=== PATIENT | female | born 1990 | race Caucasian/White ===

== ENCOUNTER 2017-02-03 00:32 | Emergency (ER) | payer MEDICAID ==
[~2017-02-03] VITALS: Ht 162.6 cm; Wt 105.0 kg
[2017-02-03 00:34] VITALS: Ht 162.6 cm; Wt 105.0 kg
[2017-02-03] MEDS ORDERED: [UNRECOGNIZED DRUG - REMARK] (01:40)
--- NOTE | 2017-02-03 01:40 | ERD ---
ER Documentation Chief Complaint Date/Time DATE: 02/03/17 TIME: 01:39 Chief Complaint 13 wks , vag spotting x 2 wks HPI 27-year-old female presents here in emergency department for complaints of vaginal spotting for 2 weeks. Patient is 2 para 0 1. Patient approximately 13 weeks , LMP 10/12/2016. Patient's complaining of vaginal spotting and cramping pain, 3/10 scale, accompanied with the bleeding. Patient denies hematuria or dysuria. Patient denies any flank pain. ROS All systems reviewed and are negative except as per history of present illness. Medications Home Meds Active Scripts Cephalexin* (Keflex*) 500 Mg Capsule, 500 MG PO QID for 10 Days, CAP Prov:SHANT ISRAEL STUDENT CAREER DEVELOPMENT SPECIALIST 02/03/17 Reported Medications [ pills] Unknown Strength No Conflict Check 02/03/17 Allergies Allergies: Coded Allergies: No Known Drug Allergies (Verified Allergy, Unknown, 11/19/15) PMhx/Soc Medical and Surgical Hx: pt denies Medical Hx, pt denies Surgical Hx Hx Alcohol Use: No Hx Substance Use: No Hx Tobacco Use: No Smoking Status: Never smoker FmHx Family History: No coronary disease, No diabetes, No other Physical Exam Vitals Vital Signs Date Time Temp Pulse Resp B/P Pulse Ox O2 Delivery O2 Flow Rate FiO2 02/03/17 03:32 100 98 Room Air 02/03/17 00:34 97.8 112 20 113/57 97 Physical Exam GENERAL: The patient is well developed and appropriate for usual state of health, in no apparent distress. CHEST: Clear to auscultation bilaterally. There are no rales, wheezes or rhonchi. HEART: Regular rate and rhythm. No murmurs, clicks, rubs or gallops. No S3 or S4. ABDOMEN: Soft, nontender and nondistended. Good bowel sounds. No rebound or guarding. No gross peritonitis. No gross organomegaly or masses. No Hart sign or McBurney point tenderness. BACK: No midline or flank tenderness. EXTREMITIES: Equal pulses bilaterally. There is no peripheral clubbing, cyanosis or edema. No focal swelling or erythema. Full range of motion. Grossly neurovascularly intact. NEURO: Alert and oriented. Cranial nerves 2-12 intact. Motor strength in all 4 extremities with 5/5 strength. Sensation grossly intact. Normal speech and gait. SKIN: There is no apparent rash or petechia. The skin is warm and dry. HEMATOLOGIC AND LYMPHATIC: There is no evidence of excessive bruising or lymphedema. No gross cervical, axillary, or inguinal lymphadenopathy. Result Diagram: 02/03/17 0150 Results 24 hrs Laboratory Tests Test 02/03/17 01:50 White Blood Count 11.510^3/ul Red Blood Count 4.0110^6/ul Hemoglobin 12.0g/dl Hematocrit 35.3% Mean Corpuscular Volume 88.0fl Mean Corpuscular Hemoglobin 29.9pg Mean Corpuscular Hemoglobin Concent 34.0g/dl Red Cell Distribution Width 13.2% Platelet Count 36310^3/UL Mean Platelet Volume 10.0fl Neutrophils % 70.5% Lymphocytes % 23.6% Monocytes % 4.8% Eosinophils % 0.4% Basophils % 0.2% Nucleated Red Blood Cells % 0.0/100WBC Neutrophils # 8.110^3/ul Lymphocytes # 2.710^3/ul Monocytes # 0.610^3/ul Eosinophils # 0.110^3/ul Basophils # 0.010^3/ul Nucleated Red Blood Cells # 0.010^3/ul Urine Color LT. YELLOW Urine Clarity SL HAZY Urine pH 5.5 Urine Specific Severance >=1.030 Urine Ketones 40 Urine Nitrite NEGATIVE Urine Bilirubin NEGATIVE Urine Urobilinogen 0.2 E.U./dL Urine Leukocyte Esterase 1+ Urine Microscopic RBC 2-5/HPF Urine Microscopic WBC 5-10/HPF Urine Squamous Epithelial Cells MANY Urine Bacteria MANY Urine Mucus MODERATE Urine Hemoglobin 3+ Urine Glucose NEGATIVE% Urine Total Protein NEGATIVE Beta HCG, Quantitative 02803.0mIU/ml Current Medications Medications (Trade) Dose Ordered Sig/Karina Route PRN Reason Start Time Stop Time Status Last Admin Dose Admin Sodium Chloride 250 ml @ 250 mls/hr Q1H ONCE IV 02/03/17 02:30 02/03/17 02:30 DC Sodium Chloride 1,000 ml @ 1,000 mls/hr Q1H ONCE IV 02/03/17 02:30 02/03/17 03:29 DC 02/03/17 02:23 Ceftriaxone Sodium (Rocephin) 50 ml @ 100 mls/hr ONCE ONCE IVPB 02/03/17 03:30 02/03/17 03:59 4/26/17 03:37 Normal saline IV bolus was given here in emergency department for rehydration, patient tolerated IV fluids. IV rocephin given to treat UTI. TOlerated meds well PROCEDURE: XR Chest. CLINICAL INDICATION: Chest pain. TECHNIQUE: Single frontal chest x-ray. COMPARISON: 08/28/2016 FINDINGS: The cardiomediastinal silhouette is unremarkable. The lungs are clear. No focal infiltrate is seen. There is no pleural effusion. There is no pneumothorax. The osseous structures are unremarkable. IMPRESSION: 1. No active disease. RPTAT: HMVK .Archie Martinez MD, MD Date Time Electronically viewed and signed by .Archie Martinez MD, on 02/03/2017 02:24 .K/ CC: SHANT ISRAEL STUDENT CAREER DEVELOPMENT SPECIALIST Procedures/MDM Medical Decision Making: Patients vaginal bleeding is most likely consistent of possible threatened . Patient does not show any evidence of hypovolemic shock. Patients hemoglobin and hematocrit is stable. There is low suspicion for ectopic . CLYDE results show a viable 14 week without any subchorionic hemorrhage. BetaHCG Quantitative is appropriate for The patient is Rh+, does not need RhoGAM this time. There is no signs of symptoms of dehydration. There is low suspicion for sepsis. Patient appears well and is hemodynamically stable. She also has urinary tract infection will be treated. no Symptoms of pyelonephritis. Disposition: Home. Condition: Stable. Rx: Keflex Instructions: Patient is advised to do bed rest, avoid heavy lifting, and avoid having sex until cleared by OB doctor. Patient is advised to follow up with OB doctor or here at the ER in 48 hours for reevaluation of symptoms, repeat beta HCG quantitative and ultrasound. Patient is advised that is symptoms are worst, severe bleeding, dizziness, severe abdominal pain, fever, worst signs and symptoms to return to the emergency department immediately. Departure Diagnosis: Primary Impression: Vaginal bleeding in patient at less than 20 weeks gestation Additional Impressions: UTI (urinary tract infection) Urinary tract infection type: acute cystitis Hematuria presence: with hematuria Qualified Code: N30.01 - Acute cystitis with hematuria Intrauterine Condition: Stable Patient Instructions: Bleeding During Early , Understanding Urinary Tract Infections (UTIs) Additional Instructions: Patient is advised to do bed rest, avoid heavy lifting, and avoid having sex until cleared by OB doctor. Patient is advised to follow up with OB doctor or here at the ER in 48 hours for reevaluation of symptoms, repeat beta HCG quantitative and ultrasound. Patient is advised that is symptoms are worst, severe bleeding, dizziness, severe abdominal pain, fever, worst signs and symptoms to return to the emergency department immediately. SHANT ISRAEL NP Feb 03, 2017 01:40
[2017-02-03 02:24] LABS: ADD SCAN DIFF NO
[2017-02-03 02:28] LABS: BASOPHILS % 0.2 % (0.0-2.0); EOSINOPHILS # 0.1 10^3/ul (0.0-0.5); EOSINOPHILS % 0.4 % (0.0-7.0); HEMATOCRIT 35.3 % (37.0-47.0); LYMPHOCYTES # 2.7 10^3/ul (0.8-2.9); LYMPHOCYTES % 23.6 % (15.0-51.0); MEAN CORPUSCULAR HEMOGLOBIN 29.9 pg (29.0-33.0); MONOCYTE # 0.6 10^3/ul (0.3-0.9); MONOCYTES % 4.8 % (0.0-11.0); NEUTROPHIL # 8.1 10^3/ul (1.6-7.5); NEUTROPHILS % 70.5 % (39.0-77.0); PLATELET COUNT 327 10^3/UL (140-415); RED BLOOD COUNT 4.01 10^6/ul (4.20-5.40); RED CELL DISTRIBUTION WIDTH 13.2 % (11.5-14.5); WHITE BLOOD COUNT 11.5 10^3/ul (4.8-10.8)
[2017-02-03] MEDS ORDERED: SOD CHLORIDE 0.9% 1,000 ML IV ONE (02:30)
[2017-02-03] MEDS ORDERED: SOD CHLORIDE 0.9% 250 ML IV ONE (02:30)
--- NOTE | 2017-02-03 02:31 | RADRPT ---
PROCEDURE: US OB. CLINICAL INDICATION: Vaginal spotting. TECHNIQUE: Multiple sonographic images of the pelvis were obtained. Transabdominal imaging only w as performed. The images were reviewed on a PACS workstation. COMPARISON: 01/29/2017 FINDINGS: Single live intrauterine is identified. Cardiac activity is present with 166 beats per mi nute. There is a variable presentation. Measurements: BPD = 14 weeks 3 days. HC = 14 weeks 3 days. AC = 14 weeks 6 days. FL = 14 weeks 6 days. Estimated gestational age of approximately 14 weeks 5 days. The estimated date of delivery is 10 and 017. The EFW = 108 g which is at the greater than 97th percentile. The placenta is anterior. There is a normal amount of amniotic fluid with a MVP = 3.5 cm. IMPRESSION: Single live intrauterine gestation of approximately 14 weeks 5 days. RPTAT: HMVK .Archie Martinez MD, Date Time Electronically viewed and signed by .Archie Martinez MD, MD on 02/03/2017 02:30 .K/
[2017-02-03 02:37] LABS: ADD UMIC YES; URINE BILIRUBIN (Dip) NEGATIVE (NEGATIVE); URINE BLOOD (Dip) 3+ (NEGATIVE); URINE COLOR LT. YELLOW (YELLOW); URINE GLUCOSE (Dip) NEGATIVE (NEGATIVE); URINE KETONES (Dip) 40 (NEGATIVE); URINE LEUKOCYTE ESTERASE (Dip) 1+ (NEGATIVE); URINE NITRITE (Dip) NEGATIVE (NEGATIVE); URINE TOTAL PROTEIN (Dip) NEGATIVE (NEGATIVE); URINE UROBILINOGEN (Dip) 0.2 E.U./dL (0.1-1.0)
[2017-02-03 03:19] LABS: BACTERIA,URINE MANY; MUCUS,URINE MODERATE; SQUAMOUS EPITHELIAL CELL,UR MANY
[2017-02-03] MEDS ORDERED: CEPH-443 PO (03:26)
[2017-02-03] MEDS ORDERED: CEFTRIAXONE 1 GM/50 ML (PMX) 50 ML IVPB ONE (03:30)
[2017-02-03 03:32] VITALS: PULSE 100
== END 2017-02-03 03:57 | disposition home or self-care (01) ==
LOC: FTE 00:32
DX: O20.9 Hemorrhage in early pregnancy, unspecified (principal); O23.42 Unspecified infection of urinary tract in pregnancy, second trimester; Z3A.14 14 weeks gestation of pregnancy
CPT/HCPCS: 36415; 76801; 81001; 84702; 85025; 86900; 86901; 96374; J0696; J7030; Z7502; 81003; J7040

== ENCOUNTER 2017-04-02 23:37 | Inpatient (IN) | payer MEDICAID, OTHER ==
[~2017-04-02] VITALS: Ht 154.9 cm; Wt 107.4 kg
[~2017-04-02 23:37] MED LIST: CEPH-443 PO; [UNRECOGNIZED DRUG - REMARK]
[2017-04-02 23:55] VITALS: Ht 154.9 cm; Wt 107.4 kg
[2017-04-02 23:56] VITALS: BP 119/59; PULSE 106
[2017-04-02] MEDS ORDERED: PRENAT PO (23:58)
[2017-04-03] MEDS ORDERED: TERBUTALINE 1 MG/ML INJ SC PRN (00:30)
[2017-04-03] MEDS ORDERED: TERBUTALINE 1 ML ONE (00:33)
[2017-04-03 01:04] LABS: ADD UMIC YES; UR ASCORBIC ACID NEGATIVE (NEGATIVE); UR BACTERIA FEW /HPF (NONE SEEN); UR BILIRUBIN (Dip) NEGATIVE (NEGATIVE); UR BLOOD (Dip) 1+ mg/dL (NEGATIVE); UR CLARITY CLOUDY (CLEAR); UR COLOR STRAW (YELLOW); UR GLUCOSE (Dip) NEGATIVE (NEGATIVE); UR KETONES (Dip) NEGATIVE (NEGATIVE); UR LEUKOCYTE ESTERASE (Dip) 3+ Leu/ul (NEGATIVE); UR NITRITE (Dip) NEGATIVE (NEGATIVE); UR RBC 8 /HPF (0-5); UR SPECIFIC GRAVITY (Dip) 1.001 (1.003-1.030); UR SQUAMOUS EPITHELIAL CELL FEW /HPF (FEW); UR TOTAL PROTEIN (Dip) NEGATIVE (NEGATIVE); UR UROBILINOGEN (Dip) NEGATIVE (NEGATIVE)
--- NOTE | 2017-04-03 02:45 | RADRPT ---
PROCEDURE: ULTRASOUND OBSTETRICAL CLINICAL INDICATION: 27-year-old female with ruptured membranes. TECHNIQUE: Multiple sonographic images of the pelvis were obtained. The images were reviewed on a PACS workstation. COMPARISON: Ultrasound OB February 03, 2017. FINDINGS: The cervix is closed with a length of 3.9 cm. There is a single viable intrauterine gestation. Card iac activity is present with 168 beats per minute. There is a vertex presentation. Measurements were made in order to determine age. The results are as follows: BPD = 5.42 cm, HC = 19.97 cm, AC = 17.50 cm, FL = 3.94 cm. This yields and estimated gestational ag e of approximately 22 weeks 3 days. The estimated date of delivery is August 04, 2017. The EFW = 509 +/- 76 g (1 lb 2 oz). The GP is 77%. The placenta is anterior. There is no evidence for an abruption or placenta previa. There is a decreased amount of amniotic fluid with a maximal vertical pocket of 2.2 cm. An ESEQUIEL was not measured. IMPRESSION: 1. Single viable intrauterine gestation of approximately 22 weeks 3 days. The estimated date of de livery is August 04, 2017. 2. The cervix appears closed with a length of 3.9 cm. 3. There appears to be oligohydramnios with a maximal vertical pocket measuring 2.2 cm however an A FI was not measured. .Ajay Gonzalez MD, MD Date Time Electronically viewed and signed by .Ajay Gonzalez MD, MD on 04/03/2017 02:44 .M/
[2017-04-03] MEDS: LACTATED RINGER'S 1,000 ML IV SCH ×3 (03:26→19:31)
[2017-04-03] MEDS: AMPICILLIN 2 GM/NS (PMX) 100 ML IV SCH ×4 (03:42→22:00)
--- NOTE | 2017-04-03 05:44 | TRIAGE ---
OB Triage Datetime Report Generated by CPN: 04/03/2017 05:44 Datetime: 04/03/2017 05:00 Labor Evaluation Frequency: 0 Monitor Mode: External Datetime: 04/03/2017 04:49 Labor Evaluation Frequency: DENIES Monitor Mode: External Heart Rate Monitor Mode: External US Comments: FHR 135-162 Datetime: 04/03/2017 04:20 Assessment Type: Admission Assessment Maternal Assessment Level of Consciousness: Fully Conscious Headache: Denies Blurred Vision: No Respiratory Effort: Unlabored; Regular Rhythm; Equal Expansion Nausea/Vomiting: Denies RUQ Epigastric Pain: Denies Lower Extremities Edema: None Upper Extremities Edema: None Facial Edema: None Fall Risk Assessment History of Falling: (0) No Secondary Diagnosis: (0) No Ambulatory Aid: (0) Bedrest/Nurse Assist IV Therapy: (20) Yes Gait: (0) Normal/Bedrest/Immobile Mental Status: (0) Oriented to Own Ability Fall Score: 20 Fall Risk Score Definition: No Risk: No action required Datetime: 04/03/2017 04:16 Temperature Route: Oral Pain Assessment Pain Scale: 0 Datetime: 04/03/2017 04:07 Stage of : Antepartum Datetime: 04/03/2017 04:00 Stage of : Antepartum Datetime: 04/03/2017 03:54 Stage of : Antepartum Datetime: 04/03/2017 03:42 Stage of : OB Triage Datetime: 04/03/2017 03:30 Stage of : OB Triage Labor Evaluation Frequency: 0 Monitor Mode: External Resting Tone [place]: Relaxed Pain Assessment Pain Scale: 0 Pain Presence: None/Denies Pain Type: N/A Datetime: 04/03/2017 03:05 Membrane Status: Ruptured Membrane Status: Intact Datetime: 04/03/2017 02:47 Stage of : OB Triage Datetime: 04/03/2017 02:30 Stage of : OB Triage Labor Evaluation Frequency: 0 Monitor Mode: External Resting Tone [place]: Relaxed Datetime: 04/03/2017 02:13 Stage of : OB Triage Datetime: 04/03/2017 02:03 Vaginal Exam Dilatation (cms): 0.0 Effacement (%): 0 Station: -4 Exam By: M WHALEN Vaginal Bleeding: None Cervix, Consistency: Firm Cervix, Position: Posterior Datetime: 04/03/2017 01:36 Stage of : OB Triage Datetime: 04/03/2017 01:33 Stage of : OB Triage Datetime: 04/03/2017 01:24 Stage of : OB Triage Labor Evaluation Frequency: 0 Monitor Mode: External Resting Tone [place]: Relaxed Datetime: 04/03/2017 00:36 Stage of : OB Triage Labor Evaluation Frequency: 3-6 Monitor Mode: External Duration (sec)2399: 40-80 Quality: Mild Resting Tone [place]: Relaxed Datetime: 04/03/2017 00:26 Stage of : OB Triage Datetime: 04/03/2017 00:02 Stage of : OB Triage Datetime: 04/02/2017 23:53 Assessment Type: Triage Maternal Assessment Level of Consciousness: Fully Conscious DTR's/Clonus: DTRs 2+; No Clonus Headache: Denies Blurred Vision: No Respiratory Effort: Unlabored Breath Sounds, Left: Clear and Equal Breath Sounds, Right: Clear and Equal Nausea/Vomiting: Denies RUQ Epigastric Pain: Denies Lower Extremities Edema: None Degree: None Upper Extremities Edema: None Degree: None Facial Edema: None Fall Risk Assessment History of Falling: (0) No Secondary Diagnosis: (0) No Ambulatory Aid: (0) Bedrest/Nurse Assist IV Therapy: (0) No Gait: (0) Normal/Bedrest/Immobile Mental Status: (0) Oriented to Own Ability Fall Score: 0 Fall Risk Score Definition: No Risk: No action required Datetime: 04/02/2017 23:46 Time of Arrival: 04/02/2017 23:14 EGA: 21.5 Arrived By: Wheelchair Arrived From: Home Chief Complaint: leaking Contractions: Denies/Absent Rupture of Membranes: Unsure Vaginal Bleeding: None Vaginal Discharge: Denies Recent Sexual Intercouse: Denies Abdominal Trauma: Not Applicable Patient Complaints: Other Provider Notified: REICHE Initial Plan: VS, DOPPLER, TOCO, NITRAZINE, ROM+, ESEQUIEL, EFW, UA, UC_S, CL, Datetime: 04/02/2017 23:45 Monitor Mode: External Contraction Comments: placed Datetime: 04/02/2017 23:44 Heart Rate Monitor Mode: Doppler Comments: x 1 min, fhts audible from 140 to 168 bts/min Datetime: 04/02/2017 23:41 Stage of : OB Triage Datetime: 04/02/2017 23:17 Stage of : OB Triage
[2017-04-03] MEDS: PRENATAL VITAMIN PO SCH (09:00)
[2017-04-03] MEDS ORDERED: PRENATAL VITAMIN PO SCH (09:00)
--- NOTE | 2017-04-03 11:51 | HP ---
Date/Time of Note Date/Time of Note DATE: 04/03/17 TIME: 11:49 OB - History Past Family/Social History * Past Medical, Surgical, Family and Obstetric Histories reviewed from chart. OB Admission Exam Vital Signs Vital Signs Vital Signs Date Time Temp Pulse Resp B/P Pulse Ox O2 Delivery O2 Flow Rate FiO2 04/02/17 23:56 97.8 106 119/59 Room Air Physical Exam Cervical Dilatation: None Effacement: 0% Station: Ballotable Membranes: Ruptured Heart Rate: 150's OB Assessment/Plan Reason for admission: rupture of membranes Other Assessment: ROM + positive Plan: Expectant Management Other plan: D/w , The Fetus is not considered viable at this point EFW is 509 ,will be repeated today Retrieve the records from clinic for proper dating Continue antibiotic Prenatalogy consult Neonatalogy consult KULWINDER OWUSU M.D. Apr 03, 2017 11:51
--- NOTE | 2017-04-03 12:20 | RADRPT ---
PROCEDURE: US OB limited. CLINICAL INDICATION: Oligohydramnios, follow-up. TECHNIQUE: Multiple transabdominal sonographic images of the pelvis were obtained. . COMPARISON: 04/03/2017 at 0125 hours. FINDINGS: There is a single live intrauterine in cephalic presentation with heart motion of 16 3 beats per minute. The placenta is anteriorly located and without evidence of previa or abruption. There is a single pocket of fluid measuring 2.9 x 1.4 cm. Additional measurable pockets are not de monstrated. Measurements were made in order to determine age. The results are as follows: BPD = 5.20 cm, 21 weeks 5 days HC = 19.78 cm, wrist 22 weeks 0 days AC = 18.28 cm, 23 weeks 1 day FL = 3.77 cm, 22 weeks 0 days EFW = 5 and 11.84 g, 1 pound 2 ounces, 78.3% IMPRESSION: Single live intrauterine measuring 22 weeks 2 days using current ultrasound measurements w ith an estimated date of delivery of 08/08/2017. RPTAT: AA .Agustina Michaels MD, MD Date Time Electronically viewed and signed by .Agustina Michaels MD, on 04/03/2017 12:19 .T/
--- NOTE | 2017-04-03 12:55 | QN ---
Documentation Comment Neonatology consult Consult done at the request of Dr. Barkley This mother is a 27-year-old 2 para 0 presently at 21-6/7 weeks gestation. Mother had spontaneous rupture membranes and was admitted on 04/03 presently on IV fluids not receiving tocolysis or steroids. I spoke to the parents at the mother's bedside and Thai about the risks associated with delivery including but not limited to the following. At 21-6/7 weeks gestation these infants are below the limits of viability and interventions are not possible at this age. I concur with waiting until the gestation is at least 23-1/2 weeks before starting steroids and the potential to decrease the risk of respiratory distress syndrome. I would monitor closely for clinical signs or symptoms of infection and consider antibiotics as necessary and/or per the perinatologist. If the be continued past 23-1/2-24 weeks of gestation I discussed the risks based on that timeframe as well as 29-30 weeks including but not limited to the following 1 respiratory we discussed respiratory distress syndrome the use of oxygen and ventilatory support the risk of chronic lung disease increases as the gestation decreases. Also discussed the risks of apnea prematurity and its treatment and long-term sequelae. 2. Cardiac discuss the possibility of hypotension use of medications support the heart volume expansion also discussed patent ductus arteriosus closure either medically or surgically 3. Infectious disease: The risk of prolonged rupture membranes increases risks of infection the use of antibiotic treatment and the possibility of significant sequelae associated with sepsis including hypotension DIC etc. 4. Jaundice/anemia: There is a significant risk for jaundice and the use of phototherapy was discussed as well as anemia and the use of transfusions for this. 5. I discussed the risks of intraventricular hemorrhage decreasing as the gestational age decreases discussed the grading system 0-4 as well as long-term risks of grade 3 and 4 hemorrhages including cerebral palsy, mental retardation , school learning deficits etc. 6. I discussed the mortality associated with extreme prematurity survivability at under 24 weeks is 10-15% to 2930 weeks survivability is approximately 90%. 7. Discussed the morbidity also increasing with decreasing gestational age including neurodevelopmental abnormalities chronic lung disease etc. We will be available for attendance at delivery as necessary. Parents had no further questions but I did indicate if they did to contact the nurse will contact us to reconsult. Signed Shonda MENDOZA,SHONDA Bain MD Apr 03, 2017 12:54
[2017-04-03 13:56] LABS: ADD SCAN DIFF NO
[2017-04-03 13:58] LABS: BASOPHILS % 0.2 % (0.0-2.0); EOSINOPHILS % 0.2 % (0.0-7.0); HEMATOCRIT 31.4 % (37.0-47.0); HEMOGLOBIN 10.6 g/dl (12.0-16.0); LYMPHOCYTES # 1.7 10^3/ul (0.8-2.9); MEAN CORPUSCULAR HEMOGLOBIN 30.8 pg (29.0-33.0); MEAN CORPUSCULAR HGB CONC 33.8 g/dl (32.0-37.0); MEAN CORPUSCULAR VOLUME 91.3 fl (82.0-101.0); MEAN PLATELET VOLUME 9.9 fl (7.4-10.4); MONOCYTE # 0.6 10^3/ul (0.3-0.9); MONOCYTES % 4.6 % (0.0-11.0); NEUTROPHIL # 9.9 10^3/ul (1.6-7.5); NEUTROPHILS % 80.3 % (39.0-77.0); PLATELET COUNT 284 10^3/UL (140-415); RED BLOOD COUNT 3.44 10^6/ul (4.20-5.40); RED CELL DISTRIBUTION WIDTH 13.7 % (11.5-14.5); WHITE BLOOD COUNT 12.3 10^3/ul (4.8-10.8)
[2017-04-03 14:19] LABS: ALBUMIN 4.2 g/dl (3.3-4.9); ALBUMIN/GLOBULIN RATIO 1.44; BILIRUBIN,INDIRECT 0.4 mg/dl (0-1.1); BILIRUBIN,TOTAL 0.4 mg/dl (0.2-1.3); CALCIUM 9.1 mg/dl (8.4-10.2); CREATININE 0.51 mg/dl (0.44-1.00); POTASSIUM 4.1 mmol/L (3.5-5.1); TOTAL PROTEIN 7.1 g/dl (6.1-8.1)
--- NOTE | 2017-04-03 15:59 | PERINOTE ---
Date/Time of Note Date/Time of Note DATE: 04/03/17 TIME: 15:47 Assessment/Recommendations Other Assessments Impression intrauterine 21 weeks and 6 days gestation by last menstrual period confirmed by multiple early ultrasounds. Ruptured membranes prior to viability. I discussed with the patient and her various options including termination, and conservative management with antibiotics and possibly tocolyse's. I discussed with them the possibility of premature delivery with long-term sequelae and the possibility of lung hypoplasia due to ruptured membranes in mid . They appear to understand this information and their questions were answered. Their decision at present is to continue the . Recommendations: I would continue the patient on bedrest with bathroom privileges. I would obtain a bedside commode for her to reduce her activity. I have encouraged her to continue use of the serial compression devices to avoid blood clots, and I have discussed with her the importance of bedrest. I would consider administering betamethasone at 23-1/2 weeks of gestation this would be approximately 5-6 days from now. I would maintain the on ampicillin and erythromycin according to the usual ruptured membranes protocol. And, given the extremely premature gestational age, I would consider tocolyse as if she develops uterine contractions in the next 2 weeks OB Subjective Free Text/Dictaton Patient reports a gush of fluid last night she return to the hospital where she was diagnosed as having ruptured membranes. dating: The is dated by last menstrual period of 11/01/16, REN of 08/08/17. This dating is confirmed by multiple prior ultrasounds including the NT ultrasound performed at 13 weeks of gestation. By this dating the current gestational age is 21 weeks and 6 days HD# 2 IUP @ 21W6D Complaints/Overnight events Patient denies fever chills or abdominal pain she reports normal movement Current Medications Current Medications Lactated Ringer's 1,000 ml @ 125 mls/hr Q8H IV Last administered on 04/03/17 11:54; Admin Dose 125 MLS/HR; Start 04/03/17 at 03:02 Ampicillin (Ampicillin 2 Gm/ NS (Pmx)) 100 ml @ 100 mls/hr Q6H IV Last administered on 04/03/17 09:47; Admin Dose 100 MLS/HR; Start 04/03/17 at 03:30 Prenat Multivit/ Radio Recorder/Iron/Folic Ac ( S) 1 tab DAILY PO ; Start at 09:00 Docusate Sodium (Colace) 100 mg BID PRN PO CONSTIPATION; Start 04/03/17 at 03: 30 Azithromycin (Zithromax) 1,000 mg ONCE ONCE PO ; Start 04/03/17 at 16:00; Stop 04/03/17 at 16:01 Past Medical History Medical History: no pertinent history Surgical History: other (D&C) 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 OPERATOR history Para: 0 : 2 LMP (Females 10-50): Family History Significant Family History: no pertinent family hx OB Admission Exam Physical Exam Vitals: Vital Signs Date Time Temp Pulse Resp B/P Pulse Ox O2 Delivery O2 Flow Rate FiO2 04/02/17 23:56 97.8 106 119/59 Room Air Heart: Rhythm Normal Lungs: Clear Abdomen: WNL Extremities: Normal Last 72 hours Lab Results CBC & BMP 04/03/17 13:20 Liver Function Test 04/03/17 13:20 Alanine Aminotransferase (ALT/SGPT) 47 Albumin 4.2 Alkaline Phosphatase 90 Aspartate Amino Transf (AST/SGOT) 22 Direct Bilirubin 0.00 Total Protein 7.1 Copies To: CC: RABIA LANG MD, MARIE H MD Apr 03, 2017 15:58
[2017-04-03] MEDS ORDERED: AZITHROMYCIN 250 MG TAB PO ONE (16:00)
[2017-04-04] MEDS: AMPICILLIN 2 GM/NS (PMX) 100 ML IV SCH ×4 (03:39→21:16)
[2017-04-04] MEDS: LACTATED RINGER'S 1,000 ML IV SCH ×4 (03:39→23:02)
[2017-04-04] MEDS: PRENATAL VITAMIN PO SCH (09:03)
--- NOTE | 2017-04-04 17:18 | QN ---
Documentation Comment iup 22 weeks pprom stable vss exam wnl +FHT a/p iup 22 weeks pprom continue care EDWARD OSPINA MD Apr 04, 2017 17:18
[2017-04-04] MEDS: DOCUSATE SODIUM 100 MG CAP PO PRN (18:58)
[2017-04-05] MEDS: AMPICILLIN 2 GM/NS (PMX) 100 ML IV SCH ×2 (03:26→09:25)
[2017-04-05] MEDS: LACTATED RINGER'S 1,000 ML IV SCH ×2 (07:59→16:54)
[2017-04-05] MEDS: PRENATAL VITAMIN PO SCH (09:25)
[2017-04-05] MEDS: ERYTHROMYCIN LACTOBIONATE 250 MG in SOD CHLORIDE 0.9% 100 ML IV SCH ×2 (11:47→18:15)
[2017-04-05] MEDS ORDERED: AMPICILLIN 2 GM/NS (PMX) 100 ML IV SCH (12:00)
[2017-04-05] MEDS: AMOXICILLIN 500 MG CAP PO SCH ×2 (14:30→22:14)
--- NOTE | 2017-04-05 20:01 | QN ---
Documentation Comment +PPROM 22 WEEKS VSS PT. ON AMP AND ERYTHRO +FHR RABIA LANG MD Apr 05, 2017 20:01
[2017-04-06] MEDS: ERYTHROMYCIN LACTOBIONATE 250 MG in SOD CHLORIDE 0.9% 100 ML IV SCH ×4 (00:15→18:21)
[2017-04-06] MEDS: LACTATED RINGER'S 1,000 ML IV SCH ×3 (02:23→19:58)
[2017-04-06] MEDS: AMOXICILLIN 500 MG CAP PO SCH ×3 (05:53→21:56)
[2017-04-06] MEDS: PRENATAL VITAMIN PO SCH (09:25)
[2017-04-06 11:18] LABS: ADD SCAN DIFF NO
--- NOTE | 2017-04-06 11:23 | QN ---
Documentation Comment PT. W/O COMPLAINTS NO NEW LEAKING VSS +FHR AMP. /ERYTHRO CBC TODAY RABIA LANG MD Apr 06, 2017 11:23
[2017-04-06 11:25] LABS: BASOPHILS % 0.1 % (0.0-2.0); EOSINOPHILS # 0.1 10^3/ul (0.0-0.5); EOSINOPHILS % 0.6 % (0.0-7.0); HEMATOCRIT 30.4 % (37.0-47.0); HEMOGLOBIN 10.3 g/dl (12.0-16.0); LYMPHOCYTES # 1.7 10^3/ul (0.8-2.9); LYMPHOCYTES % 19.6 % (15.0-51.0); MEAN CORPUSCULAR HEMOGLOBIN 30.9 pg (29.0-33.0); MEAN CORPUSCULAR HGB CONC 33.9 g/dl (32.0-37.0); MEAN CORPUSCULAR VOLUME 91.3 fl (82.0-101.0); MEAN PLATELET VOLUME 9.9 fl (7.4-10.4); MONOCYTE # 0.4 10^3/ul (0.3-0.9); MONOCYTES % 4.6 % (0.0-11.0); NEUTROPHIL # 6.4 10^3/ul (1.6-7.5); NEUTROPHILS % 74.2 % (39.0-77.0); PLATELET COUNT 257 10^3/UL (140-415); RED BLOOD COUNT 3.33 10^6/ul (4.20-5.40); RED CELL DISTRIBUTION WIDTH 13.7 % (11.5-14.5); WHITE BLOOD COUNT 8.7 10^3/ul (4.8-10.8)
[2017-04-07] MEDS: ERYTHROMYCIN LACTOBIONATE 250 MG in SOD CHLORIDE 0.9% 100 ML IV SCH ×2 (00:21→06:14)
[2017-04-07] MEDS: LACTATED RINGER'S 1,000 ML IV SCH ×3 (04:25→20:28)
[2017-04-07] MEDS: AMOXICILLIN 500 MG CAP PO SCH ×3 (06:13→21:58)
[2017-04-07] MEDS: PRENATAL VITAMIN PO SCH (09:40)
[2017-04-07] MEDS: DOCUSATE SODIUM 100 MG CAP PO PRN (09:40)
[2017-04-07] MEDS: ERYTHROMYCIN BASE (EC) 250 MG TAB PO SCH ×3 (12:22→23:55)
[2017-04-07] MEDS ORDERED: AMOXICILLIN 500 MG CAP PO SCH (14:00)
--- NOTE | 2017-04-07 22:10 | QN ---
Documentation Comment doing well vss + FHR cpm on erythro and ampicillin RABIA LANG MD Apr 07, 2017 22:10
[2017-04-08] MEDS: LACTATED RINGER'S 1,000 ML IV SCH (04:32)
[2017-04-08] MEDS: ERYTHROMYCIN BASE (EC) 250 MG TAB PO SCH ×4 (06:09→23:53)
[2017-04-08] MEDS: AMOXICILLIN 500 MG CAP PO SCH ×3 (06:09→21:58)
--- NOTE | 2017-04-08 06:14 | QN ---
Documentation Comment doing well vss abd soft +FHR RABIA LANG MD Apr 08, 2017 06:14
[2017-04-08] MEDS: PRENATAL VITAMIN PO SCH (09:24)
[2017-04-09] MEDS: ERYTHROMYCIN BASE (EC) 250 MG TAB PO SCH ×4 (05:54→23:54)
[2017-04-09] MEDS: AMOXICILLIN 500 MG CAP PO SCH ×3 (05:54→21:51)
[2017-04-09] MEDS: PRENATAL VITAMIN PO SCH (08:56)
[2017-04-10] MEDS: AMOXICILLIN 500 MG CAP PO SCH ×3 (05:54→21:58)
[2017-04-10] MEDS: ERYTHROMYCIN BASE (EC) 250 MG TAB PO SCH ×3 (05:54→17:33)
[2017-04-10] MEDS: PRENATAL VITAMIN PO SCH (08:49)
[2017-04-11] MEDS: ERYTHROMYCIN BASE (EC) 250 MG TAB PO SCH ×4 (00:12→18:11)
[2017-04-11] MEDS: AMOXICILLIN 500 MG CAP PO SCH ×3 (06:06→22:12)
[2017-04-11] MEDS: PRENATAL VITAMIN PO SCH (08:54)
--- NOTE | 2017-04-11 11:35 | QN ---
Documentation Comment Subjective: No complaint Objective: Afebrile, VSS NAD A&O Abdomen: soft, not tender Extremities: mild edema bilaterally + FHTs Assessment: 23 weeks with PPROM. plan: current care as delineated by perinatologist. patient agrees. ARNIE CH MD Apr 11, 2017 11:35
[2017-04-12] MEDS: ERYTHROMYCIN BASE (EC) 250 MG TAB PO SCH ×2 (00:13→06:07)
[2017-04-12] MEDS: AMOXICILLIN 500 MG CAP PO SCH ×3 (06:07→22:05)
[2017-04-12] MEDS: PRENATAL VITAMIN PO SCH (09:23)
--- NOTE | 2017-04-12 14:55 | QN ---
Documentation Comment doing well vss +FHR U/S and ESEQUIEL Beta methasone starting today RABIA LANG MD Apr 12, 2017 14:55
[2017-04-12] MEDS ORDERED: BETAMET NA PHOS/AC(6 MG/ML) 5ML INJ IM ONE (15:30)
[2017-04-12] MEDS: BETAMET NA PHOS/AC(6 MG/ML) 5ML INJ IM SCH (15:44)
--- NOTE | 2017-04-12 16:52 | RADRPT ---
PROCEDURE: US OB. CLINICAL INDICATION: Low ESEQUIEL , premature rupture of membranes TECHNIQUE: Transabdominal views of the pelvis are available for review. COMPARISON: 04/03/2017 FINDINGS: There is a single intrauterine gestation in a vertex position. The heart rate is noted at 161 bpm. The placenta is anterior. The ESEQUIEL measures 2.2 cm. RPTAT: AA IMPRESSION: Markedly decreased ESEQUIEL measuring 2.2 cm. .Jamil Rockwell MD, MD Date Time Electronically viewed and signed by .Jamil Rockwell MD, MD on 04/12/2017 16:52 .S/
[2017-04-13] MEDS: AMOXICILLIN 500 MG CAP PO SCH ×3 (06:00→22:17)
[2017-04-13] MEDS: BETAMET NA PHOS/AC(6 MG/ML) 5ML INJ IM SCH ×2 (09:00→15:32)
[2017-04-13] MEDS: DOCUSATE SODIUM 100 MG CAP PO PRN (10:05)
[2017-04-13] MEDS: PRENATAL VITAMIN PO SCH (10:05)
[2017-04-14] MEDS: AMOXICILLIN 500 MG CAP PO SCH ×2 (05:57→14:22)
[2017-04-14] MEDS: PRENATAL VITAMIN PO SCH (09:17)
--- NOTE | 2017-04-14 23:21 | QN ---
Documentation Comment Denies any leaking of fluid reports had some spotting. Resolved. Denies any contractions. Has no complaint. Denies any abnormal vaginal discharge general appearance: Alert and oriented 4 patient does not appear to be in any acute distress. Abdomen: Soft, gravid, fundal height consistent with gestational age. No uterine tenderness. No fundal tenderness Crescent: No contraction seen heart tone: Normal range Assessment: IUP at 23 weeks and 3 days undergoing Inpatient management due to PPROM Status post latency antibiotics completed 7 days of, antibiotics Status post a dose of steroid. Currently more than 24 hours after last dose of steroid No evidence of chorioamnionitis or abruption Afebrile Clinically stable Continue inpatient management Watch carefully for signs and symptoms of infection or abruption CBC tomorrow a.m. neonatology consult MARCELINO BOJORQUEZ MD Apr 14, 2017 23:20
--- NOTE | 2017-04-15 05:57 | RADRPT ---
PROCEDURE: US OB limited CLINICAL INDICATION: Vaginal bleeding and premature rupture of membranes TECHNIQUE: Multiple sonographic images of the pelvis were obtained. The images were reviewed on a PACS workstation. COMPARISON: 04/12/2017 FINDINGS: There is a single live intrauterine gestation. There is visually low amniotic fluid volume Cardiac activity is present with 139 beats per minute. There is a vertex presentation. The placenta is anterior and grade 1. There is no evidence for abruption or previa.. IMPRESSION: No definite evidence for placental abruption. Live intrauterine gestation with vertex presentation. Low amniotic fluid volume. . RPTAT: HLBE Physician Nadeem Date Time Electronically viewed and signed by Physician Nadeem on 04/15/2017 05:57 LE/
[2017-04-15] MEDS ORDERED: MAGNESIUM SULFATE 6 GM in SOD CHLORIDE 0.9% 100 ML IVPB ONE (06:00)
[2017-04-15] MEDS ORDERED: LACTATED RINGER'S 1,000 ML IV ONE (06:00)
[2017-04-15 06:14] LABS: ADD SCAN DIFF NO
[2017-04-15 06:16] LABS: BASOPHILS % 0.2 % (0.0-2.0); EOSINOPHILS # 0.1 10^3/ul (0.0-0.5); EOSINOPHILS % 0.4 % (0.0-7.0); HEMATOCRIT 34.2 % (37.0-47.0); HEMOGLOBIN 11.4 g/dl (12.0-16.0); LYMPHOCYTES # 3.1 10^3/ul (0.8-2.9); LYMPHOCYTES % 24.4 % (15.0-51.0); MEAN CORPUSCULAR HEMOGLOBIN 30.4 pg (29.0-33.0); MEAN CORPUSCULAR HGB CONC 33.3 g/dl (32.0-37.0); MEAN CORPUSCULAR VOLUME 91.2 fl (82.0-101.0); MEAN PLATELET VOLUME 10.1 fl (7.4-10.4); MONOCYTE # 1.1 10^3/ul (0.3-0.9); MONOCYTES % 8.6 % (0.0-11.0); NEUTROPHIL # 8.2 10^3/ul (1.6-7.5); NEUTROPHILS % 63.7 % (39.0-77.0); PLATELET COUNT 298 10^3/UL (140-415); RED BLOOD COUNT 3.75 10^6/ul (4.20-5.40); RED CELL DISTRIBUTION WIDTH 13.2 % (11.5-14.5); WHITE BLOOD COUNT 12.8 10^3/ul (4.8-10.8)
[2017-04-15 06:37] LABS: ADD UMIC YES; UR ASCORBIC ACID NEGATIVE (NEGATIVE); UR BILIRUBIN (Dip) NEGATIVE (NEGATIVE); UR BLOOD (Dip) 3+ mg/dL (NEGATIVE); UR CLARITY SLIGHTLY CLOUDY (CLEAR); UR COLOR RED (YELLOW); UR GLUCOSE (Dip) NEGATIVE (NEGATIVE); UR KETONES (Dip) NEGATIVE (NEGATIVE); UR LEUKOCYTE ESTERASE (Dip) 3+ Leu/ul (NEGATIVE); UR MUCUS FEW /HPF (NONE SEEN); UR NITRITE (Dip) NEGATIVE (NEGATIVE); UR RBC > 182 /HPF (0-5); UR SPECIFIC GRAVITY (Dip) 1.011 (1.003-1.030); UR SQUAMOUS EPITHELIAL CELL FEW /HPF (FEW); UR TOTAL PROTEIN (Dip) 2+ mg/dl (NEGATIVE); UR UROBILINOGEN (Dip) NEGATIVE (NEGATIVE); UR WBC CLUMPS FEW /HPF (NONE SEEN)
--- NOTE | 2017-04-15 06:50 | QN ---
Documentation Comment Called by RN to evaluate the patient after she was noted to have bloody urine. Attended to the bedside. Patient already urinated in the bedside commode. Urine bloody. Patient was feeling intermittent urge and pushing in the rectum area. Denies any fever or chills. GA: Alert and oriented 4. Patient looked to be in mild to moderate distress. Concerned about possibility of delivery Abdomen: Soft, gravid, fundal height consistent with gestational age. No fundal tenderness. Sterile speculum examination performed. Cervix appeared to be closed and long. Bloody amniotic fluid noted as a 5 cc pooling in the vagina. Patient was on continuous toco. heart tone has been monitored intermittently with Doppler Patient reported feeling intermittently urge to push. Due to patient's symptoms and presents of deep variable after started continuous monitoring in the heart tracing decision was made to perform sterile vaginal exam. Cervix closed and posterior. Ultrasound stat orders per presentation as well as rule out abruption. Ultrasound showed no evidence of abruption. Presentation vertex. Status post 2 doses of steroid contractions every 4-5 minutes on the monitor noted. Orders for magnesium to be started for neuro prophylaxis. Discussed with the patient about possibility of abruption versus delivery. Poor outcome in case of delivery with extreme immaturity discussed with the patient. Patient verbalized understanding risks. Patient reported that have been already counseled by perinatologist. Increased risk for long-term and short-term disability including cerebral palsy and long-term and short-term disability with extreme prematurity if she goes to labor or ending delivery discussed with the patient in detail. Long-term admission to NICU , and high likelihood of intubation and complications of prematurity discussed with patient. I called Dr. Barkley and updated him about the patient's status. He will be in soon. We will continue to monitor closely Started magnesium for neuro prophylaxis Patient needs to be counseled and be seen by library clerical assistant as well Start Ampicillin for GBS prophylaxis MARCELINO BOJORQUEZ MD Apr 15, 2017 06:50
[2017-04-15] MEDS ORDERED: MISOPROSTOL 200 MCG TAB PR PRN (07:00)
[2017-04-15] MEDS ORDERED: CARBOPROST 250 MCG INJ IM PRN (07:00)
[2017-04-15] MEDS ORDERED: METHYLERGONOVINE 0.2 MG INJ IM PRN (07:00)
[2017-04-15] MEDS ORDERED: OXYTOCIN 30 UNITS/LR 500 ML IV SCH (07:00)
[2017-04-15] MEDS ORDERED: OXYTOCIN 30 UNITS/LR 500 ML IV PRN (07:00)
[2017-04-15] MEDS ORDERED: CEFAZOLIN 2 GM/50 ML (PMX) 50 ML IV SCH (07:00)
[2017-04-15] MEDS ORDERED: AMPICILLIN 2 GM/NS (PMX) 100 ML ONE (07:02)
[2017-04-15] MEDS: AMPICILLIN 2 GM/NS (PMX) 100 ML IVPB SCH ×4 (07:06→21:28)
[2017-04-15] MEDS: LACTATED RINGER'S 1,000 ML IV SCH ×2 (07:10→15:36)
[2017-04-15] MEDS: MAGNESIUM SULFATE 20 GM/500 ML 500 ML IV SCH ×2 (07:17→16:45)
--- NOTE | 2017-04-15 07:25 | RADRPT ---
PROCEDURE: Limited obstetric ultrasound CLINICAL INDICATION: Pain TECHNIQUE: Multiple transverse and longitudinal grayscale images of the pelvis were obtained alejandro sabdominally. COMPARISON: same day FINDINGS: The cervix is suboptimally visualized transabdominally. It appears to measures 2.3 cm in length. T here is evidence of funneling. There is a single viable intrauterine gestation. Cardiac activity is present with 146 beats per min hansa. There is a vertex presentation. The placenta is anterior. There is no evidence for an abruption or placenta previa. RPTAT: AA IMPRESSION: Cervix not well seen. Cervix length measures 2.3 cm. Probable funneling. .Jamil Rockwell MD, MD Date Time Electronically viewed and signed by .Jamil Rockwell MD, on 04/15/2017 07:25 .S/
--- NOTE | 2017-04-15 07:35 | QN ---
Documentation Comment Pt. is w/o complaint. Had small amount of spotting when she was in the bathroom Pt. felt few uterine ctxs vaginal exam done by Dr. Betancur : closed, long u/s shows vertex presentation. few deep variables Magnesium is started pt. received betamethasone 48 hours ago. Perinatology will be notified again Pt. wants everything done and a c/s if the heartbeat of the baby drops. RABIA LANG MD Apr 15, 2017 07:35
[2017-04-15] MEDS: PRENATAL VITAMIN PO SCH (09:28)
--- NOTE | 2017-04-15 11:46 | RADRPT ---
PROCEDURE: US Obstetric greater than 14 weeks. CLINICAL INDICATION: Ruptured membranes TECHNIQUE: Multiple sonographic images of the pelvis were obtained. Transabdominal imaging only w as performed. The images were reviewed on a PACS workstation. COMPARISON: 04/12/2017 FINDINGS: Single intrauterine gestation. Cephalic presentation. heart rate is 148 bpm. The cervix is not well visualized. Measurements were made in order to determine age. The results are as follows: BPD = 5.86 cm HC = 21.36 cm AC = 19.17 cm FL = 4.19 cm Estimated gestational age is 23 weeks 5 days (based on ultrasound measurements). Estimated date of delivery is 08/07/2017. EFW = 626 g +/- 94 g. (51%). The placenta is anterior. There is no evidence for an abruption or placenta previa. No identifiable pocket of amniotic fluid is seen. IMPRESSION: 1. Single live intrauterine gestation of 23 weeks 5 days (based on ultrasound measurements), as abo ve. 2. Severe oligohydramnios, similar to prior ultrasound. RPTAT: EE .Jean Paul Mendenhall MD, MD Date Time Electronically viewed and signed by .Jean Paul Mendenhall MD, on 04/15/2017 11:46 .R/
[2017-04-15 12:02] LABS: INR 0.92; PROTIME 12.4 Sec (12.2-14.2)
[2017-04-15 13:35] LABS: PARTIAL THROMBOPLASTIN TIME 26.6 Sec (25.0-35.0)
[2017-04-15] MEDS ORDERED: ONDANSETRON 4 MG INJ ONE (22:48)
[2017-04-15] MEDS: ONDANSETRON 4 MG INJ IV PRN (22:50)
[2017-04-15] MEDS ORDERED: ACETAMINOPHEN 325 MG TAB PO PRN (23:00)
[2017-04-16] MEDS: AMPICILLIN 2 GM/NS (PMX) 100 ML IVPB SCH ×6 (01:03→21:26)
[2017-04-16] MEDS: MAGNESIUM SULFATE 20 GM/500 ML 500 ML IV SCH ×3 (03:46→22:12)
[2017-04-16] MEDS: LACTATED RINGER'S 1,000 ML IV SCH (05:12)
--- NOTE | 2017-04-16 06:55 | QN ---
Documentation Comment doing well no bleeding or leaking no decleraion on the heart tracing will d/c MgSo4 RABIA LANG MD Apr 16, 2017 06:55
[2017-04-16] MEDS: PRENATAL VITAMIN PO SCH (08:10)
[2017-04-16] MEDS: DOCUSATE SODIUM 100 MG CAP PO PRN (08:10)
[2017-04-16] MEDS: AZITHROMYCIN 250 MG in SOD CHLORIDE 0.9% 250 ML IVPB SCH (12:47)
[2017-04-16] MEDS: ONDANSETRON 4 MG INJ IV PRN (13:52)
[2017-04-16] MEDS ORDERED: ERYTHROMYCIN LACTOBIONATE 500 MG in SOD CHLORIDE 0.9% 100 ML IVPB SCH (14:00)
[2017-04-17] MEDS: AMPICILLIN 2 GM/NS (PMX) 100 ML IVPB SCH ×6 (01:00→21:00)
[2017-04-17] MEDS: LACTATED RINGER'S 1,000 ML IV SCH ×2 (01:02→12:33)
[2017-04-17] MEDS: MAGNESIUM SULFATE 20 GM/500 ML 500 ML IV SCH (07:18)
[2017-04-17] MEDS ORDERED: DOCUSATE SODIUM 100 MG CAP PO PRN ×2 (08:30→14:30)
--- NOTE | 2017-04-17 08:34 | QN ---
Documentation Comment doing well vss no bleeding no decleration stop magnesium give erthyromycin and ampicillin transfer to [facility] RABIA LANG MD Apr 17, 2017 08:34
[2017-04-17] MEDS: PRENATAL VITAMIN PO SCH (12:26)
[2017-04-17] MEDS: AZITHROMYCIN 250 MG in SOD CHLORIDE 0.9% 250 ML IVPB SCH (13:11)
[2017-04-17] MEDS ORDERED: LACTATED RINGER'S 1,000 ML IV SCH ×2 (14:15→20:31)
[2017-04-17] MEDS ORDERED: ACETAMINOPHEN 325 MG TAB PO PRN (14:30)
[2017-04-17] MEDS ORDERED: ONDANSETRON (ODT) 4 MG TAB ODT PRN (15:00)
[2017-04-17] MEDS ORDERED: CEFAZOLIN 2 GM/50 ML (PMX) 50 ML IV SCH (19:30)
[2017-04-17] MEDS ORDERED: morphine SULFATE/PF (10 MG/10 ML) INJ ONE (20:18)
[2017-04-17] MEDS ORDERED: FENTAnyl 50 MCG/ML VIAL ONE (20:18)
[2017-04-17] MEDS ORDERED: PHENYLephrine (100 MCG/ML) 5ML SYG ONE (20:29)
[2017-04-17] MEDS ORDERED: OXYTOCIN 30 UNITS/LR 500 ML IV SCH (20:31)
--- NOTE | 2017-04-17 20:31 | QN ---
Documentation Comment pt. having deep repatative uterine ctx . Pt. wants everything done for the baby and requesting a c/s. Pt. understands the risk and benefits of the hospitals. RABIA LANG MD Apr 17, 2017 20:31
[2017-04-17] MEDS ORDERED: OXYTOCIN 30 UNITS/LR 500 ML IV ONE (20:32)
[2017-04-17] MEDS ORDERED: OXYTOCIN 30 UNITS/LR 500 ML IV PRN (21:00)
[2017-04-17] MEDS ORDERED: MISOPROSTOL 200 MCG TAB PR PRN (21:00)
[2017-04-17] MEDS ORDERED: LANOLIN 7 GM TUBE TOP PRN (21:00)
[2017-04-17] MEDS ORDERED: METHYLERGONOVINE 0.2 MG INJ IM PRN (21:00)
[2017-04-17] MEDS ORDERED: NACL 0.9% 3 ML SYG IV SCH (21:00)
[2017-04-17] MEDS ORDERED: NA PHOSPHATE/BIPHOS 133 ML ENEMA PR PRN (21:00)
[2017-04-17] MEDS ORDERED: CARBOPROST 250 MCG INJ IM PRN (21:00)
[2017-04-17] MEDS ORDERED: DEXAMETHASONE 4 MG/ML 1 ML INJ ONE (21:01)
[2017-04-17] MEDS ORDERED: ONDANSETRON 4 MG INJ ONE (21:01)
[2017-04-17] MEDS ORDERED: IBUPROFEN 800 MG TAB PO SCH (22:00)
[2017-04-18] MEDS ORDERED: ONDANSETRON 4 MG INJ IV PRN (00:30)
[2017-04-18] MEDS ORDERED: NALOXONE (0.4 MG/ML) INJ IV PRN (00:30)
[2017-04-18] MEDS ORDERED: DIPHENHYDRAMINE 50 MG INJ IV PRN (00:30)
[2017-04-18] MEDS ORDERED: ZOLPIDEM 5 MG TAB PO PRN (00:30)
[2017-04-18] MEDS ORDERED: HYDROmorphONE 1 MG/ML SYG IV PRN ×2 (00:30)
[2017-04-18] MEDS ORDERED: KETOROLAC 30 MG INJ IV PRN (00:30)
[2017-04-18] MEDS ORDERED: DIPHENHYDRAMINE 50 MG INJ IM PRN (00:30)
[2017-04-18] MEDS: AMPICILLIN 2 GM/NS (PMX) 100 ML IVPB SCH (02:09)
[2017-04-18 07:34] LABS: ADD SCAN DIFF NO
[2017-04-18 07:47] LABS: BASOPHILS % 0.1 % (0.0-2.0); HEMATOCRIT 30.7 % (37.0-47.0); HEMOGLOBIN 10.3 g/dl (12.0-16.0); LYMPHOCYTES # 1.8 10^3/ul (0.8-2.9); LYMPHOCYTES % 12.1 % (15.0-51.0); MEAN CORPUSCULAR HEMOGLOBIN 30.3 pg (29.0-33.0); MEAN CORPUSCULAR HGB CONC 33.6 g/dl (32.0-37.0); MEAN CORPUSCULAR VOLUME 90.3 fl (82.0-101.0); MONOCYTE # 0.7 10^3/ul (0.3-0.9); MONOCYTES % 4.9 % (0.0-11.0); NEUTROPHIL # 12.2 10^3/ul (1.6-7.5); NEUTROPHILS % 82.4 % (39.0-77.0); PLATELET COUNT 294 10^3/UL (140-415); WHITE BLOOD COUNT 14.8 10^3/ul (4.8-10.8)
[2017-04-18] MEDS: PRENATAL VITAMIN PO SCH (09:34)
--- NOTE | 2017-04-18 10:51 | OPR ---
Operative Report Planned Procedure Procedure date Apr 18, 2017 Performed by: RABIA LANG MD Assisting provider: CATHY ALLEN Anesthesia Type: spinal Procedure Description Under satisfactory spinal anesthesia, the patient was prepped and draped and placed in a supine position, tilted to the left. Pfannenstiel incision was made , carried through the subcutaneous tissue. Bleeders brought under control with electrocautery. Fascia incised to the length of the incision. Rectus muscles from the fascia, divided midline. Peritoneum exposed, entered through a transverse incision. Exploration of abdomen revealed gravid uterus. Bladder flap was developed. Transverse incision was made in the lower segment of the uterus. Amniotic sac ruptured. [] amniotic fluid noted. [] Nasal oropharyngeal suction was performed. The baby was handed to the team for immediate attention. The placenta was delivered manually intact. Uterine cavity was cleaned with wet sponge and drainage established. Uterus closed in 2 layers using [] in continuous fashion. Peritoneal cavity irrigated with warm saline. Sponge, needle and instrument count reported to be correct. Abdominal peritoneum closed with one monocryl continuously. Rectus . Fascia closed with one moncryl, and skin closed with ileana. Estimated blood loss 700mL. Post-Procedure Findings: Live Baby [], Apgars [] and [], weight [], position [], [] presentation []cord. Pt Condition post procedure: stable Physician Certification I, the undersigned physician, hereby certify that I have discussed the procedure described in this consent form with this patient (or the patient's legal metals sales representative), including: * The risk and benefits of the procedure; * Any adverse reactions that may reasonably be expected to occur; * Any alternative efficacious methods of treatment which may be medically viable ; * The potential problems that may occur during recuperation; * Potential for blood transfusion and associated risks/benefits; and * Any research or economic interest I may have regarding this treatment. I further certify that the patient/legally responsible person was encouraged to ask question and that all questions were answered. RABIA LANG MD Apr 18, 2017 10:51
--- NOTE | 2017-04-18 10:52 | QN ---
Documentation Comment doing well vss abd soft out of bed today RABIA LANG MD Apr 18, 2017 10:51
--- NOTE | 2017-04-18 10:54 | DS ---
Date/Time of Note Date/Time of Note DATE: 04/18/17 TIME: 10:53 Discharge Summary Admission/Discharge Info Admit Date/Time Apr 03, 2017 at 04:04 Discharge Date/Time Discharge Diagnosis rupture of membrane Procedures primary c/s Hospital Course unremarkable Home Meds Reported Medications Multivit/Min/Fol Ac/Iron/Pren* ( S*) 1 Tab Tab, 1 TAB PO DAILY, TAB 04/02/17 [ pills] Unknown Strength No Conflict Check 02/03/17 Primary Care Provider Care Physician No Primary Pending Labs Laboratory Tests Test 04/18/17 06:22 White Blood Count 14.810^3/ul (4.8-10.8) Red Blood Count 3.4010^6/ul (4.20-5.40) Hemoglobin 10.3g/dl (12.0-16.0) Hematocrit 30.7% (37.0-47.0) Mean Corpuscular Volume 90.3fl (82.0-101.0) Mean Corpuscular Hemoglobin 30.3pg (29.0-33.0) Mean Corpuscular Hemoglobin Concent 33.6g/dl (32.0-37.0) Red Cell Distribution Width 13.0% (11.5-14.5) Platelet Count 99283^3/UL (140-415) Mean Platelet Volume 10.0fl (7.4-10.4) Neutrophils % 82.4% (39.0-77.0) Lymphocytes % 12.1% (15.0-51.0) Monocytes % 4.9% (0.0-11.0) Eosinophils % 0.0% (0.0-7.0) Basophils % 0.1% (0.0-2.0) Nucleated Red Blood Cells % 0.0/100WBC (0.0-0.0) Neutrophils # 12.210^3/ul (1.6-7.5) Lymphocytes # 1.810^3/ul (0.8-2.9) Monocytes # 0.710^3/ul (0.3-0.9) Eosinophils # 0.010^3/ul (0.0-0.5) Basophils # 0.010^3/ul (0.0-0.1) Nucleated Red Blood Cells # 0.010^3/ul (0.0-0.0) RABIA LANG MD Apr 18, 2017 10:53
[2017-04-18] MEDS: OXYCODONE/ACETAMINOPHEN (5/325) TAB PO PRN ×2 (16:47→21:51)
[2017-04-18 20:00] VITALS: BP 86/44; PULSE 85; RESP 18
[2017-04-19] VITALS (7 sets, daily range): BP systolic 90–120; BP diastolic 49–72; PULSE 86–96; RESP 16–18
[2017-04-19] MEDS: OXYCODONE/ACETAMINOPHEN (5/325) TAB PO PRN ×3 (02:53→16:13)
--- NOTE | 2017-04-19 08:12 | QN ---
Documentation Comment doing well vss abd soft d/c home next am RABIA LANG MD Apr 19, 2017 08:11
[2017-04-19] MEDS: SENNA TAB PO PRN ×2 (08:43→13:17)
[2017-04-19] MEDS: PRENATAL VITAMIN PO SCH (08:43)
[2017-04-20] MEDS: OXYCODONE/ACETAMINOPHEN (5/325) TAB PO PRN (00:12)
[2017-04-20] MEDS ORDERED: DIPHTH/TET/ACEL PERTUSS (ADULT) 0.5 ML VIAL IM* ONE (09:00)
[2017-04-20] MEDS ORDERED: MEASLES,MUMPS,RUBELLA VACCINE INJ SC* ONE (09:00)
[2017-04-20] MEDS: PRENATAL VITAMIN PO SCH (09:48)
[2017-04-20] MEDS: ACETAMINOPHEN/CODEINE #3 TAB PO PRN ×2 (09:49→12:48)
[2017-04-20] MEDS ORDERED: IBUP800T25 PO (10:27)
== END 2017-04-20 11:15 | disposition home or self-care (01) | DRG 766 ==
LOC: OBT 23:37 → L-D 23:39 → OBT 04-03 04:03 → OBG 04-03 04:04 → L-D 04-15 06:49 → OBG 04-17 14:03 → L-D 04-17 17:55 → PP1 04-18 00:18 → OBG 04-18 01:57
PROVIDERS: ADMIT Obstetrics & Gynecology; ATTEND Obstetrics & Gynecology
PROC: 10D00Z1 Extraction of Products of Conception, Low, Open Approach (ICD-10-PCS; principal; 2017-04-17 20:30)
DX: O42.912 Preterm premature rupture of membranes, unspecified as to length of time between rupture and onset of labor, second trimester (principal); Z37.0 Single live birth; Z3A.21 21 weeks gestation of pregnancy
CPT/HCPCS: 76815; 76816; 76817; 80053; 81001; 83036; 83735; 84112; 85025; 85610; 85730; 86592; 86850; 86900; 86901; 87086; 87340; 90715; 96372; 99464; G0463; J0290; J0456; J0690; J0702; J1100; J1200; J1364; J2274; J2370; J2405; J2590; J3010; J3105; J3475; J7050; J7120

== ENCOUNTER 2017-08-05 13:10 | Emergency (ER) | payer MEDICAID, OTHER ==
[~2017-08-05] VITALS: Ht 157.5 cm; Wt 106.0 kg
[~2017-08-05 13:10] MED LIST changes: -CEPH-443 PO; +IBUP800T25 PO
[2017-08-05 13:15] VITALS: Ht 157.5 cm; Wt 106.0 kg
[2017-08-05 16:09] LABS: BASOPHILS % 0.2 % (0.0-2.0); EOSINOPHILS # 0.1 10^3/ul (0.0-0.5); EOSINOPHILS % 0.5 % (0.0-7.0); HEMATOCRIT 37.9 % (37.0-47.0); HEMOGLOBIN 12.6 g/dl (12.0-16.0); LYMPHOCYTES % 18.3 % (15.0-51.0); MEAN CORPUSCULAR HEMOGLOBIN 27.9 pg (29.0-33.0); MEAN CORPUSCULAR HGB CONC 33.2 g/dl (32.0-37.0); MEAN PLATELET VOLUME 9.8 fl (7.4-10.4); MONOCYTE # 0.5 10^3/ul (0.3-0.9); MONOCYTES % 4.5 % (0.0-11.0); NEUTROPHIL # 8.4 10^3/ul (1.6-7.5); NEUTROPHILS % 76.1 % (39.0-77.0); PLATELET COUNT 340 10^3/UL (140-415); RED BLOOD COUNT 4.51 10^6/ul (4.20-5.40); RED CELL DISTRIBUTION WIDTH 13.9 % (11.5-14.5)
--- NOTE | 2017-08-05 16:14 | RADRPT ---
PROCEDURE: XR Chest. CLINICAL INDICATION: chest pain TECHNIQUE: Single frontal view of the chest was obtained COMPARISON: None FINDINGS: The heart and mediastinum are within normal limits. The lungs are clear. There is no pleural effusion or pneumothorax. RPTAT: AA IMPRESSION: No acute disease. .Jamil Rockwell MD, Date Time Electronically viewed and signed by .Jamil Rockwell MD, on 08/05/2017 16:13 .S/
[2017-08-05 16:39] LABS: D-DIMER 862.91 ng/ml (<460)
[2017-08-05 16:40] LABS: ADD UMIC YES; UR ASCORBIC ACID NEGATIVE (NEGATIVE); UR BACTERIA FEW /HPF (NONE SEEN); UR BILIRUBIN (Dip) NEGATIVE (NEGATIVE); UR BLOOD (Dip) NEGATIVE (NEGATIVE); UR CLARITY SLIGHTLY CLOUDY (CLEAR); UR COLOR YELLOW (YELLOW); UR GLUCOSE (Dip) NEGATIVE (NEGATIVE); UR KETONES (Dip) NEGATIVE (NEGATIVE); UR LEUKOCYTE ESTERASE (Dip) 3+ Leu/ul (NEGATIVE); UR MUCUS FEW /HPF (NONE SEEN); UR NITRITE (Dip) NEGATIVE (NEGATIVE); UR RBC 2 /HPF (0-5); UR SPECIFIC GRAVITY (Dip) 1.027 (1.003-1.030); UR SQUAMOUS EPITHELIAL CELL MODERATE /HPF (FEW); UR TOTAL PROTEIN (Dip) NEGATIVE (NEGATIVE); UR UROBILINOGEN (Dip) 2+ mg/dL (NEGATIVE)
[2017-08-05 16:43] LABS: ALANINE AMINOTRANSFERASE 122 IU/L (13-69); ALBUMIN 4.4 g/dl (3.3-4.9); ALKALINE PHOSPHATASE 134 IU/L (42-121); ANION GAP 13 (8-16); ASPARTATE AMINO TRANSFERASE 147 IU/L (15-46); BILIRUBIN,INDIRECT 0.8 mg/dl (0-1.1); BILIRUBIN,TOTAL 0.8 mg/dl (0.2-1.3); BLOOD UREA NITROGEN 10 mg/dl (7-20); CALCIUM 9.7 mg/dl (8.4-10.2); CARBON DIOXIDE 27 mmol/L (21-31); CHLORIDE 107 mmol/L (97-110); GLUCOSE 88 mg/dl (70-220); POTASSIUM 4.2 mmol/L (3.5-5.1); SODIUM 143 mmol/L (135-144); TOTAL PROTEIN 8.8 g/dl (6.1-8.1)
[2017-08-05 16:54] LABS: TROPONIN-I < 0.012 ng/ml (0.00-0.12)
[2017-08-05] MEDS ORDERED: SOD CHLORIDE 0.9% 100 ML ONE (18:30)
[2017-08-05] MEDS ORDERED: IODIXANOL LOCM 100 ML BTL ONE (18:30)
--- NOTE | 2017-08-05 18:31 | ERD ---
ER Documentation Chief Complaint Chief Complaint HAD CP FELT PRESSURE ON CHEST RADIATED TO THE BACK HPI 27-year-old female, previously healthy, presents to the emergency department complaining of 4 days with chest pain. Pain is located in the left anterior chest, without radiation, intermittent, suden onset, approximately one episode per day once lasting 30 minutes oximetry. The pain is described as pressure like, 6/10, occasionally, associated with palpitations. The patient denies any precipitating factors, and she has not taking any medications for this pain. The patient denies shortness of breath, cough, dizziness, fever, chills. She denies any family history of heart problems, she denies taking control, no recent history of surgeries or prolonged immobilization. The patient currently is asymptomatic. Today she referred two episodes 1 at 7am same characteristics and the second one at noon. ROS SYSTEMIC symptoms: No fever, no chills, no night sweats EYE symptoms: No eyesight problems. OTOLARYNGEAL symptoms: No hearing loss. CARDIOVASCULAR symptoms: as described in HPI. PULMONARY symptoms: No dyspnea, no cough, no wheezing. GASTROINTESTINAL symptoms: No abdominal pain, no nausea, no vomiting SKIN no rashes MUSCULOSKELETAL symptoms: No arthralgias, no muscle aches. NEUROLOGY symptoms: No headache, no confusion, no syncope, no numbness or tingling. All systems reviewed and are negative except as per history of present illness. Medications Home Meds Active Scripts Ibuprofen* (Motrin*) 600 Mg Tab, 600 MG PO Q6, #30 TAB Prov:MAGALIS BAGLEY 08/05/17 Ciprofloxacin Hcl* (Ciprofloxacin Hcl*) 500 Mg Tablet, 250 MG PO BID for 5 Days , #10 TAB Prov:ALCIDES FOSTER MD 08/05/17 Reported Medications Ibuprofen* (Motrin*) 800 Mg Tab, 800 MG PO Q6, TAB 04/20/17 [ pills] Unknown Strength No Conflict Check 02/03/17 Allergies Allergies: Coded Allergies: No Known Drug Allergies (Verified Allergy, Unknown, 04/02/17) PMhx/Soc The patient denies history of diabetes, hypertension, CAD. Non-smoker. Medical and Surgical Hx: pt denies Medical Hx, pt denies Surgical Hx Hx Miscellaneous Medical Probl: Yes (MORBID OBESITY) Hx Alcohol Use: No Hx Substance Use: No Hx Tobacco Use: No FmHx No family history of hypertension, diabetes, coronary artery disease Physical Exam Vitals Vital Signs Date Time Temp Pulse Resp B/P Pulse Ox O2 Delivery O2 Flow Rate FiO2 08/05/17 18:33 78 17 100/62 100 Room Air 08/05/17 13:15 98.7 94 18 131/72 98 Physical Exam Const: [] Head: Atraumatic Eyes: Normal Conjunctiva ENT: Normal External Ears, Nose and Mouth. Neck: Full range of motion..~ No meningismus. Resp: Clear to auscultation bilaterally Cardio: Regular rate and rhythm, no murmurs Abd: Soft, non tender, non distended. Normal bowel sounds Skin: No petechiae or rashes Back: No midline or flank tenderness Ext: No cyanosis, or edema Neur: Awake and alert Psych: Normal Mood and Affect Result Diagram: 08/05/17 1555 08/05/17 1555 Results 24 hrs Laboratory Tests Test 08/05/17 15:55 White Blood Count 11.010^3/ul Red Blood Count 4.5110^6/ul Hemoglobin 12.6g/dl Hematocrit 37.9% Mean Corpuscular Volume 84.0fl Mean Corpuscular Hemoglobin 27.9pg Mean Corpuscular Hemoglobin Concent 33.2g/dl Red Cell Distribution Width 13.9% Platelet Count 13565^3/UL Mean Platelet Volume 9.8fl Neutrophils % 76.1% Lymphocytes % 18.3% Monocytes % 4.5% Eosinophils % 0.5% Basophils % 0.2% Nucleated Red Blood Cells % 0.0/100WBC Neutrophils # 8.410^3/ul Lymphocytes # 2.010^3/ul Monocytes # 0.510^3/ul Eosinophils # 0.110^3/ul Basophils # 0.010^3/ul Nucleated Red Blood Cells # 0.010^3/ul D-Dimer 862.91ng/ml D-Dimer Comment Urine Color YELLOW Urine Clarity SLIGHTLY CLOUDY Urine pH 5.0 Urine Specific West 1.027 Urine Ketones NEGATIVEmg/dL Urine Nitrite NEGATIVEmg/dL Urine Bilirubin NEGATIVEmg/dL Urine Urobilinogen 2+mg/dL Urine Leukocyte Esterase 3+Chucho/ul Urine Microscopic RBC 2/HPF Urine Microscopic WBC 9/HPF Urine Squamous Epithelial Cells MODERATE/HPF Urine Bacteria FEW/HPF Urine Mucus FEW/HPF Urine Hemoglobin NEGATIVEmg/dL Urine Glucose NEGATIVEmg/dL Urine Total Protein NEGATIVEmg/dl Sodium Level 143mmol/L Potassium Level 4.2mmol/L Chloride Level 107mmol/L Carbon Dioxide Level 27mmol/L Anion Gap 13 Blood Urea Nitrogen 10mg/dl Creatinine 0.70mg/dl Glucose Level 88mg/dl Calcium Level 9.7mg/dl Total Bilirubin 0.8mg/dl Direct Bilirubin 0.00mg/dl Indirect Bilirubin 0.8mg/dl Aspartate Amino Transf (AST/SGOT) 147IU/L Alanine Aminotransferase (ALT/SGPT) 122IU/L Alkaline Phosphatase 134IU/L Troponin I < 0.012ng/ml Total Protein 8.8g/dl Albumin 4.4g/dl Globulin 4.40g/dl Albumin/Globulin Ratio 1.00 Lipase 85U/L Current Medications Medications (Trade) Dose Ordered Sig/Karina Route PRN Reason Start Time Stop Time Status Last Admin Dose Admin IV Flush 10 ml 10 ml STK-MED ONCE .ROUTE 08/05/17 18:30 08/05/17 18:31 DC Sodium Chloride (NS) 100 ml @ ud STK-MED ONCE .ROUTE 08/05/17 18:30 08/05/17 18:31 DC Iodixanol (Visipaque Locm) 100 ml STK-MED ONCE .ROUTE 08/05/17 18:30 08/05/17 18:31 DC Patient: MONY SAUCEDO : 1990 Age: 27 Sex: F MR #: [id number] DOS: 08/05/17 1800 Ordering MD: ALCIDES FOSTER MD Location: [facility] Room/Bed: PROCEDURE: CT chest with contrast/PE protocol CLINICAL INDICATION: Chest pain and elevated D - dimer level. Clinical concern for pulmonary embolism. TECHNIQUE: The study was performed from the thoracic inlet to the upper abdomen with the use of 100 cc of Visipaque 320 intravenous contrast material per PE protocol. Coronal/sagittal reformatted images and coronal MIP images were generated. 3-D post processing was not performed The images were reviewed on a PACS workstation. One or more of the following dose reduction techniques were used: Automated exposure control, adjustment of the mA and/or kV according to patient size, use of iterative reconstruction technique. CTDIvol = 83.26 mGy and DLP= 690.59 mGycm. COMPARISON: Chest x-ray 08/05/2017 FINDINGS: The study is limited by the patient's body habitus. Lungs, airway and pleura: The trachea and bronchi are patent as well as normal in caliber. The lungs are clear of infiltrates, masses or nodules. The pleural spaces are clear, without effusions. Mediastinum, yoana and cardiovascular: The heart is top normal in size. There is no evidence for pericardial effusion. The thoracic aorta is normal in caliber. There are no filling defects within the pulmonary arteries to suggest emboli. There is no evidence for hilar mass and no mediastinal adenopathy is present. The esophagus is normal in caliber. Osseous structures and musculoskeletal findings: There is preservation of bone architecture and mineralization with no evidence for fracture, lytic or blastic lesion. Moderate thoracic spondylosis is demonstrated. No chest wall abnormalities are present. The axillary regions are unremarkable. Visualized upper abdomen: No abnormalities are identified. The adrenal glands are normal bilaterally. RPTAT:HJJR IMPRESSION: 1. No evidence for pulmonary embolism or acute intrathoracic abnormality. 2. Incidental thoracic spondylosis. Physician Dustin Date Time Electronically viewed and signed by Physician Dustin on 08/05/2017 19:43 Procedures/MDM 27-year-old, previously healthy, with acute chest pain: Differential diagnoses includes but not limited to pericarditis, myocarditis, musculoskeletal, endocarditis, pulmonary embolism, myocardial ischemia, GERD. Physical examination unremarkable, patient is currently asymptomatic with vital signs stable. Electrocardiogram shows normal sinus rhythm with ventricular rate 83 bpm, V3 and V4 with mild R-wave quality, no ST elevation. X-rays within normal limits. Blood work requested: Troponin 0.012, d-dimer elevated 862.91. Liver function test mildly elevated. Because of the history of atypical chest pain with elevated d-dimer in a morbidly obese patient CT angiogram was ordered to rule out PE. The CT angiogram was negative for pulmonary embolism. The patient remained stable and asymptomatic in the emergency department. Findings and medical impression discussed with patient and family, the patient will be discharged with a diagnosis of atypical chest pain and urinary tract infection, she will be discharged home with a prescription for antibiotics and ER precautions. Departure Diagnosis: Primary Impression: Chest pain Additional Impressions: Elevated d-dimer UTI (urinary tract infection) Condition: Stable Patient Instructions: Chest Pain, Uncertain Cause Additional Instructions: Thank you very much for allowing us to participate in your care. It was a pleasure seen you today here at [facility]. Have prescriptions filled and follow precisely the directions on the label. Follow-up with primary care provider during the next 4 days and bring all the information and medications prescribed. If illness has not improved in 2 days, then make an appointment with primary care provider. If the provider is unavailable, return to the Emergency Department immediately. ALCIDES FOSTER MD Aug 05, 2017 18:18
[2017-08-05 18:33] VITALS: BP 100/62; PULSE 78; RESP 17
[2017-08-05] MEDS ORDERED: CIPR500T4 PO (18:35)
--- NOTE | 2017-08-05 19:43 | RADRPT ---
PROCEDURE: CT chest with contrast/PE protocol CLINICAL INDICATION: Chest pain and elevated D - dimer level. Clinical concern for pulmonary embo lism. TECHNIQUE: The study was performed from the thoracic inlet to the upper abdomen with the use of 10 0 cc of Visipaque 320 intravenous contrast material per PE protocol. Coronal/sagittal reformatted im ages and coronal MIP images were generated. 3-D post processing was not performed The images were re viewed on a PACS workstation. One or more of the following dose reduction techniques were used: Auto mated exposure control, adjustment of the mA and/or kV according to patient size, use of iterative r econstruction technique. CTDIvol = 83.26 mGy and DLP= 690.59 mGycm. COMPARISON: Chest x-ray 08/05/2017 FINDINGS: The study is limited by the patient's body habitus. Lungs, airway and pleura: The trachea and bronchi are patent as well as normal in caliber. The macarena gs are clear of infiltrates, masses or nodules. The pleural spaces are clear, without effusions. Mediastinum, yoana and cardiovascular: The heart is top normal in size. There is no evidence for pe ricardial effusion. The thoracic aorta is normal in caliber. There are no filling defects within th e pulmonary arteries to suggest emboli. There is no evidence for hilar mass and no mediastinal adeno humberto is present. The esophagus is normal in caliber. Osseous structures and musculoskeletal findings: There is preservation of bone architecture and min eralization with no evidence for fracture, lytic or blastic lesion. Moderate thoracic spondylosis is demonstrated. No chest wall abnormalities are present. The axillary regions are unremarkable. Visualized upper abdomen: No abnormalities are identified. The adrenal glands are normal bilateral ly. RPTAT:HJJR IMPRESSION: 1. No evidence for pulmonary embolism or acute intrathoracic abnormality. 2. Incidental thoracic spondylosis. Physician Dustin Date Time Electronically viewed and signed by Physician Dustin on 08/05/2017 19:43 JR/
[2017-08-05] MEDS ORDERED: IBUP-1542 PO (20:08)
== END 2017-08-05 20:17 | disposition home or self-care (01) ==
LOC: FTE 13:10
DX: R07.9 Chest pain, unspecified (principal); R79.1 Abnormal coagulation profile; N39.0 Urinary tract infection, site not specified; E66.01 Morbid (severe) obesity due to excess calories; Z68.41 Body mass index [BMI] 40.0-44.9, adult
CPT/HCPCS: 36415; 71010; 71275; 80053; 81001; 83690; 84484; 85025; 85378; 93005; Q9967; Z7502; Z7610